=== PATIENT | female | born 1975 | race Caucasian/White ===

== ENCOUNTER 2024-10-14 18:49 | Emergency (ER) | payer OTHER, SELFPAY ==
--- OUTSIDE RECORDS SUMMARY | 2023-06-20 06:36 | XMS_ITS | Continuity of Care Document ---
Author Organization [facility] Address [address] [address] [place] [address] Phone Care Team Providers Care Lion Trainer Name Role Phone Steffen Barkley MD, [facility] Advance Directives Directive Yes / No Effective Date File Name No Information Encounters Encounter Description Practice Location Reason(s) For Visit Diagnoses Date Provider Providers Copied on Encounter [facility], [address] [address], [place], [place], [id number], [place] tel:[phone] [facility] No Information Steffen Pagan. [address] [facility], [facility] [address], [place], [place], [id number], [place]. tel:[phone] Family History Family Member Type Diagnosis Age At Onset No Information Immunizations Vaccine Date Status Comments Afluria Qd administered Note: [facility]IC bi-directional interface ; Source: Other Registry SARS-COV-2 (COVID-19) vaccin e, mRNA, spike protein, LNP, preservative free, 50 mcg/0.5 mL dose administered Note: [facility]IC bi-direct ional interface ; Source: Other Registry SARS-COV-2 (COVID-19) vaccin e, mRNA, spike protein, LNP, preservative free, 30 mcg/0.3mL dose administered Note: [facility]IC bi-direct ional interface ; Source: Other Registry SARS-COV-2 (COVID-19) vaccin e, mRNA, spike protein, LNP, preservative free, 30 mcg/0.3mL dose administered Note: MIIC bi-direct ional interface ; Source: Other Registry Influenza administered Note: [facility]IC bi-d irectional interface ; Source: Other Registry influenza virus vaccine, unspecified formulation administered Note: [facility]IC bi-di rectional interface ; Source: Other Registry Influenza, seasonal, injecta ble, preservative free administered Note: MIIC bi-direct ional interface ; Source: Other Registry influenza virus vaccine, unspecified formulation administered Note: MIIC bi-di rectional interface ; Source: Other Registry tetanus toxoid, reduced diphtheria toxoid, and acellular pertussis vaccine, adsorbed administered Note: Pal[employer]romXIC b i-directional interface ; Source: Other Registry Influenza, seasonal, injectable administe red Note: [facility]IC bi- directional interface ; Source: Other Registry Payers Payer name Insurance type Covered alliance party ID Authoriza tion(s) No Information Social History Type Description Quantity Date Captured Comments Sex Female Smoking Status No Information Chief Complaint And Reason For Visit No Information Reason For Referral Reason For Referral No Information History Of Present Illness Encounter Date Complaint History Of Prese nt Illness No Information Functional Status Date Functional Assessmen t No Information Instructions Date Instruction Additional Infor mation No Information Assessments Type Assessment Date No Information Patient Care Teams Name Effective Dates (start - stop) Status Members No Information
--- OUTSIDE RECORDS SUMMARY | 2023-06-20 06:36 | XMS_ITS | Continuity of Care Document ---
Author Organization [facility] Address [address] [address] [place] [address] Phone Care Team Providers Care Senior Oracle Adf Developer Name Role Phone Steffen Barkley MD, [facility] Advance Directives Directive Yes / No Effective Date File Name No Information Encounters Encounter Description Practice Location Reason(s) For Visit Diagnoses Date Provider Providers Copied on Encounter [facility], [address] [address], [place], [place], [id number], [place] tel:[phone] [facility] No Information Steffen Pagan. [address] [facility], [facility] [address], [place], [place], [id number], [place]. tel:[phone] Family History Family Member Type Diagnosis Age [...] and acellular pertussis vaccine, adsorbed administered Note: [facility] Data[facility] b i-directional interface ; Source: Other Registry Influenza, seasonal, injectable administe red Note: [facility]IC bi- directional interface ; Source: Other Registry Payers Payer name Insurance type Covered green party ID Authoriza tion(s) No Information Social [...]
[2024-10-14 18:52] VITALS: BP 135/88; PULSE 77; RESP 18; TEMP 36.9; O2SAT 94; BMI 20.6
--- OUTSIDE RECORDS SUMMARY | 2024-10-14 18:52 | XMS_ITS | Encounter Summary ---
Author Organization [place] Address [facility] [place] [address] Care Team Providers Care Workplace Relations Adviser Name Role Phone Unassigned MD ELIZABETH, Clinic Primary Care Provider Unavailable No Ref-Primary, Physician Primary Care Provider No Ref-Primary, Physician Primary Care Provider Clinic - [facility] Primary Care Provider Chromy Diana A PA-C Unavailable [phone] Chromy, Diana A PA-C Unavailable [phone] No Ref-Primary, Physician Primary Care Provider Encounter Details Date Type Department Care Team (Late st Contact Info) Description 11/11/2009 Clinic Report (Enforcement Manager) [address] [phone] No Funez MD NO INFO AVAILABLE 07/07/2022 Social History Tobacco Use Types Packs/Day Years Used Date Smoking Tobacco: Never Assessed Comments Unknown Sex and Gender Information Value Date Recorded Sex Assigned at Not on file 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 It is located on the buttocks right. The symptom is described as acute, firm, sharp pain and stable. The symptom is sudden in onset and ongoing. The symptom started 5 days ago. The complaint is severe. The frequency of episodes is daily. Important triggers include no known associated factors. The symptom is alleviated by warm compress and drainage. The symptom is exacerbated by direct pressure. ROS: Constitutional: The patient denied fatigue, fever, insomnia, night sweats, recent illness and weight loss. Dermatologic: The patient complained of cyst (3 cm on right buttocks not much improved though it drained alot yesterday.) but denied itching and rash. Vital Signs: data collected on 11/11/2009 03:40:52 PM by Zahraa Mars weight is 113 pounds clothed sitting heart rate is 64 bpm radial regular blood pressure at Left Arm while Sitting is 100/68 mmHg PE: Constitutional: GENERAL APPEARANCE: Overall: well nourished, well developed and in no acute distress. Integument: INSPECTION OF SKIN: Dermatitis: cyst; PALPATION: Abdomen inspection: tender and induration. Dx: (685.0) - C - Pilonidal cyst w/ abscess Rx: Cephalexin 500 mg Tab, 1 Tablet(s), PO, QID, 10 days, for a total of 40, start on November 11, 2009, end on November 20, 2009. Rocephin 1 gram Solution for Injection, 1 Gram(s), Inj, daily, for a total of 1 gm, start on November 11, 2009, end on November 10, 2009. Plan: None Patient Instructions: None documented in this encounter Plan of Treatment Not on file documented as of this encounter Visit Diagnoses Not on filedocumented in this encounter Additional Health Concerns Infection Onset Date Last Indicated Resolved Time Rule Out C-difficile 10/29/2022 10/29/2022 023 8:25 PM CDT documented as of this encounter Care Teams Workplace Relations Adviser Relationship Specialty Start Date End Date Unassigned, Clinic MD ELIZABETH PCP - General 08/14/10 1 No Ref-Primary, Physician PCP - General 01/08/11 10/12/12 No Ref-Primary, Physician PCP - General 10/13/12 12/19/16 Clinic - [facility] [address] [place], [place] [address] PCP - General 12/20/16 10/28/22 Diana Mcfarland PA-C [address] [place] [address] [facility] [address] PCP - Assigned PCP 12/07/15 06/27/18 No Ref-Primary, Physician PCP - General 10/29/22 Diana Mcfarland PA-C [address] [place] [address] [facility] [place] [address] Assigned PCP 12/07/15 12/02/18 documented as of this encounter
--- OUTSIDE RECORDS SUMMARY | 2024-10-14 18:52 | XMS_ITS | Encounter Summary ---
Author Organization [place] Address [facility] [place] [address] Care Team Providers Care Kelp Cutter Name Role Phone Unassigned MD ELIZABETH, Clinic Primary Care Provider Unavailable No Ref-Primary, Physician Primary Care Provider No Ref-Primary, Physician Primary Care Provider Clinic - [facility] Primary Care Provider Chromy Diana A PA-C Unavailable [phone] Chromy, Diana A PA-C Unavailable [phone] No Ref-Primary, Physician Primary Care Provider Encounter Details Date Type Department Care Team (Late st Contact Info) Description 11/10/2009 Clinic Report (Stained Glass Glazier) [address] [phone] No Funez MD NO INFO AVAILABLE 07/07/2022 Social History Tobacco Use Types Packs/Day Years Used Date Smoking Tobacco: Never Assessed Comments Unknown Sex and Gender Information Value Date Recorded Sex Assigned at Not on file 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 She presented with cyst. It is located on the buttocks Tailbone. The symptom is described as sharp pain and worsening. The symptom is gradual in onset. The symptom started 4 days ago. The complaint is severe. The frequency of episodes is daily. ROS: None Vital Signs: data collected on 11/10/2009 08:38:24 AM by Zahraaabel Mayslisa weight is 113 pounds clothed sitting heart rate is 64 bpm radial regular blood pressure at Left Arm while Sitting is 116/68 mmHg PE: Constitutional: GENERAL APPEARANCE: Overall: well nourished, well developed and in no acute distress. Integument: INSPECTION OF SKIN: Dermatitis: cyst. Dx: (706.2) - C - Sebaceous cyst (685.0) - C - Pilonidal cyst w/ abscess Rx: Rocephin 1 gram Solution for Injection, 1 Gram(s), Inj, daily, 1 days, for a total of 1 gm, start on November 10, 2009, end on November 10, 2009. Plan: A return visit is indicated in 1day. Patient Instructions: Soak all day and return tomorrow to get drain removed and to reassess it. documented in this encounter Plan of Treatment Not on file documented as of this encounter Visit Diagnoses Not on filedocumented in this encounter Additional Health Concerns Infection Onset Date Last Indicated Resolved Time Rule Out C-difficile 10/29/2022 10/29/2022 023 8:25 PM CDT documented as of this encounter Care Teams Kelp Cutter Relationship Specialty Start Date End Date Unassigned, Clinic MD ELIZABETH PCP - General 08/14/10 1 No Ref-Primary, Physician PCP - General 01/08/11 10/12/12 No Ref-Primary, Physician PCP - General 10/13/12 12/19/16 Clinic - [facility] [address] [place] [id number] PCP - General 12/20/16 10/28/22 Diana Mcfarland PA-C [address] [place] [address] [facility] [place] [address] PCP - Assigned PCP 12/07/15 06/27/18 No Ref-Primary, Physician PCP - General 10/29/22 Diana Mcfarland PA-C [address] [place] [address] [facility] [place] [address] Assigned PCP 12/07/15 12/02/18 documented as of this encounter
--- OUTSIDE RECORDS SUMMARY | 2024-10-14 18:52 | XMS_ITS | Clinical Summary ---
Author Organization [place] Address [facility] [place] [address] Care Team Providers Care Compressed Gas Equipment Mechanic Name Role Phone No Ref-Primary, Physician Primary Care Provider Allergies No known active allergies Medications ondansetron (ZOFRAN ODT) 4 MG ODT tab Take 1 tablet (4 mg) by mouth every 6 hours as needed for nausea 10 tablet 10/29/2022 Active loperamide (IMODIUM A-D) 2 MG tablet Take 1 tablet (2 mg) by mouth 4 times daily as needed for diarrhea 20 tablet 10/29/2022 Active Active Problems Problem Noted Date Diagnosed Date CARDIOVASCULAR SCREENING; LDL GOAL LESS THAN 160 04/03/2015 GDM (gestational diabetes mellitus) in 2010 w Hg bA1C= 5.8 08/03/2012 Depression 11/05/2010 Overview (05/23/2013): Was seen 08/05 by [facility] and started on Topimax for mood disorder as she had not tolerated any other antidepressants in the past. Stopped taking this as she was feeling better 04/06. Has a hx of eating disorder - ongoing binging and purging - and has gained about 40# since that time. Would like to try an SSRI again and is willing to accept the risks that she may deal with the same side effects. Will return to clinic 06/08 for follow up. Resolved Problems Problem Noted Date Diagnosed Date Resolved Date Carrier of group B Streptococcus 12/29/2010 04/03/2015 IUGR (intrauterine growth re striction) Asymmetrical 12/22/2010 02/17/2011 Supervision of high-risk pre gnancy of elderly primigravida 12/16/2010 02/17/2011 Overview (12/16/2010): Late and sporadic care, Wt loss. Risked out of [facility] care/transferred to [facility] GDM (gestational diabetes mellitus) 11/05/2010 08/03/2012 Abnormal maternal glucose to [facility], complicating , childbirth, or the puer[place]ium, unspecified as to episode of care 10/22/2010 11/05/2010 Overview (11/02/2010): Failed GCT Has GTT scheduled. Need for Tdap vaccination post 08/14/2010 05/23/2013 Encounter for supervision of other normal 08/14/2010 12/16/2010 Overview (02/24/2015): ABO was cancelled so needs redraw at next visit. Jkd Small stomach on MFM scan so will repeat in 4 weeks. Jkd Follow up normal Diagnosis updated by automated process. Provider to review and confirm. Immunizations Immunization Administration Dates Next Due Nasal Influenza Vaccine 2-49 (FluMist) 5 TDAP (Adacel,Boostrix) 09/30/2011 Family History Medical History Relation Comments Alcohol/Drug Maternal Grandfather Breast Cancer Maternal Grandmother 70's Neurologic Disorder Mother migraines Alcohol/Drug Paternal Grandfather Relation Status Comments Father Alive Maternal Grandfather Maternal Grandmother Alive Mother Alive Paternal Grandfather Paternal Grandmother Sister 1 Alive Sister 2 Alive Social History Tobacco Use Types Packs/Day Years Used Date Smoking Tobacco: Never Smokeless Tobacco: Never Tobacco Cessation:Counseling Given: No Alcohol Use Standard Drinks/Week Comments No 0 (1 standard drink = 0.6 oz pur e alcohol) not with Adolescent Education Answer Date Record ed Getting School Help Needed Not on file 02/07 Comments No Sex and Gender Information Value Date Recorded Sex Assigned at Not on file Legal 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 Gender Identity Not on file Sexual Orientation Not on file Last Filed Vital Signs Vital Sign Reading Time Taken Comments Blood Pressure 136/85 10/29/2022 2:28 PM CDT Pulse 80 10/29/2022 2:11 PM CDT Temperature 36.9 C (98.4 F) 10/29/2022 2:11 PM CDT Respiratory Rate 16 10/29/2022 2:11 PM CDT Oxygen Saturation 97% 10/29/2022 2:11 PM CDT Inhaled Oxygen Concentration - - Weight 58.7 kg (129 lb 6.4 oz) 12/03/2015 7:16 A M CDT Height 162.6 cm (5' 4) 12/03/2015 7:16 AM CDT Body Mass Index 22.21 12/03/2015 7:16 AM CDT Plan of Treatment Health Maintenance Due Date Last Done Comments ADVANCE CARE PLANNING 1975 ANNUAL REVIEW OF HM ORDERS 1975 CT COLONOGRAPHY 1975 FIT 1975 FLEX SIG 1975 MAMMO SCREENING 1975 sDNA (Cologuard) 1975 YEARLY PREVENTIVE VISIT 11/25/1978 COLONOSCOPY 11/25/1985 COLORECTAL CANCER SCREENING 11/25/1985 HEPATITIS C SCREENING 11/25/1993 HEPATITIS B VACCINE (1 of 3 - 19+ 3-dose series) 11/25/1994 PAP 08/14/2013 08/14/2010 LIPID 2015 DTAP/TDAP/TD VACCINE (3 - Td or Tdap) 09/05/2023 09/04/2013, 09/30/2011 COVID-19 VACCINE ( - season) 2023 09/21/2020, 09/01/2020 PHQ-2 (once per calendar year) 2024 04/21/2015, 04/21/2015, 04/03/2015, Additional history exists INFLUENZA VACCINE (Season Ended) 2024 02/28/2017, 12/26/2014, 12/09/2014, Additional history exists DIABETES SCREENING 10/29/2025 10/29/2022, 0 01/08/2011, 01/08/2011, Additional history exists ZOSTER VACCINE (1 of 2) 11/25/2025 HIV SCREENING Completed 08/14/2010 HPV VACCINE Aged Out No longer eligi ble based on patient's age to complete this topic MENINGITIS VACCINE Aged Out No longer eligible based on patient's age to complete this topic PNEUMOCOCCAL VACCINE: PEDIATRICS (0 to 5 YEARS) AND AT-RISK PATIENTS (6 to 49 YEARS) Aged Out No longer eligible based on patient's age to complete this topic Procedures Procedure Name Priority Date/Time Associated Diagnosis Comments COMPREHENSIVE METABOLIC PANEL STAT 10/29/2022 2:19 PM CDT HIV 1 AND 2 ANTIBODY (QUEST) Routine 08/14/2010 4:09 PM CDT PAP IMAGED THIN LAYER SCREEN Routine 08/14/2010 12:00 AM CDT Supervision of other normal from Last 3 Months or Most Recently Relevant to Health Maintenance Results * (ABNORMAL) Comprehensive metabolic panel (10/29/2022 2:19 PM CDT) Sodium 138 136 - 145 mmol/L 10/29/2022 3:29 PM CDT LABORATORY Potassium 4.2 3.4 - 5.3 mmol/L 10/29/2022 3:29 PM CDT LABORATORY Chloride 100 98 - 107 mmol/L 10/29/2022 3:29 PM CDT LABORATORY Carbon Dioxide (CO2) 27 22 - 29 mmol/L 10/29/2022 3:29 PM CDT LABORATORY Anion Gap 11 7 - 15 mmol/L 10/29/2022 3:29 PM CDT LABORATORY Urea Nitrogen 6.1 6.0 - 20.0 mg/dL 10/29/2022 3:29 PM CDT LABORATORY Creatinine 0.74 0.51 - 0.95 mg/dL 10/29/2022 3:29 PM CDT LABORATORY Calcium 9.0 8.6 - 10.0 mg/dL 10/29/2022 3:29 PM CDT LABORATORY Glucose 117(H) 70 - 99 mg/dL 10/29/2022 3:29 PM CDT LABORATORY Alkaline Phosphatase 66 35 - 104 U/L 10/29/2022 3:29 PM CDT LABORATORY AST 41 0 - 45 U/L 10/29/2022 3:29 PM CDT LABORATORY Comment:Reference intervals for this test were updated on 10/04/2022 to more accurately reflect our healthy population. There may be differences in the flagging of prior results with similar values performed with this method. Interpretation of those prior results can be made in the context of the updated reference intervals. ALT 21 0 - 50 U/L 10/29/2022 3:29 PM CDT LABORATORY Comment:Reference intervals for this test were updated on 10/04/2022 to more accurately reflect our healthy population. There may be differences in the flagging of prior results with similar values performed with this method. Interpretation of those prior results can be made in the context of the updated reference intervals. Protein Total 6.5 6.4 - 8.3 g/dL 10/29/2022 3:29 PM CDT LABORATORY Albumin 3.8 3.5 - 5.2 g/dL 10/29/2022 3:29 PM CDT LABORATORY Bilirubin Total 1.4(H) <=1.2 mg/dL 10/29/2022 3:29 PM CDT LABORATORY GFR Estimate >90 >60 mL/min/1. 73m2 10/29/2022 3:29 PM CDT LABORATORY Blood BLOOD SPECIMEN / Unknown Venipuncture / Unknown 10/29/2022 2:19 PM CDT 10/29/2022 3:10 PM CDT us Emeli Conrad MD LAB - BLOOD ORDERABLES Radha l Result LABORATORY [facility] [address] 1[address] floor, [address] [place] [address], [facility] [phone] * HIV 1 and 2 Antibody (08/14/2010 4:09 PM CDT) HIV 1&2 Antibody Negative NEG [facility] Blood specimen (specimen) 08/14/2010 4:09 PM CDT 08/14/2010 4:10 PM CDT us Queta Bartlett APRN CNM LAB - BLOOD ORDERABLES Final Result [facility] [address] [place] [address] * PAP imaged thin layer screen (08/14/2010 12:00 AM CDT) PAP CALEB Aguilar Report Patient Name: BRENDA QUIROGA MR#: [id number] Specimen #: [id number] Collected: 08/14/2010 Received: 08/17/2010 Reported: 08/20/2010 15:55 Ordering Phy(s): QUETA BARTLETT SPECIMEN/STAIN PROCESS: Pap imaged thin layer prep screening (Surepath, FocalPoint with guided screening) Pap-Cyto x 1, Reflex HPV x 1 SOURCE: Cervical, endocervical Pap imaged thin layer prep screening (Surepath, FocalPoint with guided screening) SPECIMEN ADEQUACY: Satisfactory for evaluation. -Transformation zone component absent. CYTOLOGIC INTERPRETATION: Negative for Intraepithelial Lesion or Malignancy Other Non-Neoplastic Findings: Reactive cellular changes associated with: -Parakeratosis. Organism(s): -Shift in sita suggestive of bacterial vaginosis. Electronically signed out by: Hubert Ramirez M.D. Processed and screened at [facility] CLINICAL HISTORY: LMP: 04/13/2010 , Papanicolaou Test Limitations: Cervical cytology is a screening test with limited sensitivity; regular screening is critical for cancer prevention; Pap tests are primarily effective for the diagnosis/preventi on of squamous cell carcinoma, not adenocarcinomas or other cancers. TESTING LAB LOCATION: [facility], [address] [place] [id number] COLLECTION SITE: Client: [facility] Location: [facility] (B) [facility] Cytologic material (specimen) 08/14/2010 08/17/2010 12:47 PM CDT us Queta Bartlett WATCHGUARD CNM LAB - OPTIME CLINICAL SPECIMEN Final Result COPATH from Last 3 Months or Most Recently Relevant to Health Maintenance Insurance [facility] Care Teams Compressed Gas Equipment Mechanic Relationship Specialty Start Date End Date No Ref-Primary, Physician PCP - General 10/29/22
--- OUTSIDE RECORDS SUMMARY | 2024-10-14 18:52 | XMS_ITS | Encounter Summary ---
Author Organization [facility] Address [address] [place] [address] Care Team Providers Care Bottom Sander Name Role Phone No Ref-Primary, Physician Primary Care Provider No Ref-Primary, Physician Primary Care Provider Clinic - [facility] Primary Care Provider Diana Mcfarland PA-C Unavailable [phone] Diana Mcfarland PA-C Unavailable [phone] No Ref-Primary, Physician Primary Care Provider Encounter Details Date Type Department Care Team (Late st Contact Info) Description 09/30/2011 Clinic Report (Campus Coordinator) [address] [phone] Luanne Awad DO [address] [place] [address] [address] [place], [place] [id number] Social History Tobacco Use Types Packs/Day Years Used Date Smoking Tobacco: Never Smokeless Tobacco: Never Alcohol Use Standard Drinks/Week Comments No 0 (1 standard drink = 0.6 oz pur e alcohol) not with Comments No Sex and Gender Information Value Date Recorded Sex Assigned at Not on file Legal Sex Female 3:54 AM SOCIAL SERVICES COORDINATOR Gender Identity Not on file Sexual Orientation Not on file documented as of this encounter Progress Notes * Luanne Awad DO - 03/17/2012 6:31 PM CST CC/HPI: She presented with cough. It is located in the lung. The symptom is described as acute. The symptom is ongoing. The symptom started 3 weeks ago. The complaint moderately limits activities. The frequency of episodes is daily. ROS: no whooping. however, pt's mother with whooping cough about a month ago and questionable contact with pt. Constitutional: The patient complained of chills (yesterday) and fever (yesterday, didn't check temp but warm at home yesterday). Ears/Nose/Throat/Neck: The patient complained of postnasal drip and sinus congestion but denied nosebleed. Respiratory: The patient complained of cough but denied asthma, cigarette smoking and dyspnea/shortness of breath. Gastrointestinal: The patient complained of anorexia (past only.). Genitourinary/Nephrology: The patient denied (not bf). Allergy/Immunology: The patient denied food allergy. Vital Signs: data collected on 09/30/2011 11:55:55 AM by Kendra Tillman weight is 117 pounds clothed temperature is 100.3 F sitting heart rate is 88 bpm regular blood pressure at Left Arm while Sitting is 114/62 mmHg PE: Constitutional: GENERAL APPEARANCE: Overall: well nourished, well developed and in no acute distress. Eyes: CONJUNCTIVA/EYELIDS: Overall: conjunctiva clear. Ears/Nose/Throat: OTOSCOPIC EXAM: Overall: tympanic membranes clear; INTERNAL NOSE: Drainage: white; Sinus tenderness: left maxillary and right maxillary; ORAL CAVITY/PHARYNX/LARYNX: Overall: oropharyngeal mucosa clear. Neck: INSPECTION OF NECK: Overall: normal size. Respiratory: AUSCULTATION: Overall: breath sounds clear bilaterally. Cardiovascular: AUSCULTATION OF HEART: Overall: regular rate, regular rhythm, normal heart sounds and no murmurs. Abdomen: ABDOMINAL EXAM: Overall: no tenderness and normal bowel sounds. Lymphatic: NECK NODES: Overall: anterior cervical chain benign and posterior cervical chain benign. Dx: (786.2) - C - Cough (465.9) - C - Upper respiratory infection, acute, NOS (461.9) - C - Sinusitis, acute, NOS (472.0) - C - Rhinitis (V06.1) - C - DTAP/Tdap vaccination Rx: Flonase 50 mcg/Actuation Nasal Weidman, 1-2 Weidman, NASAL, QHS PRN, 30 days, for a total of 1, start on September 30, 2011, end on October 29, 2011. Zithromax Z-Kael 250 mg Tab, PO, 5 days, for a total of 6, start on September 30, 2011, end on October 04, 2011, 2 tablets po day 1 then 1 tablet po each day, days 2-5.. Plan: note off today, tomorrow, return sat. pt requests zpak. pt aware of potential cardiac side effects and accepts risks. denies dm/heart disease. trial of flonase for a few weeks. pt mentions child at home with mild cold and follows with other dr and advised that she followup with her melita dr soon and melita shots up to date per mom and no direct contact with whooping cough. pt would like Tdap today and realizes will not prevent disease from previous exposure but will help in future. Symptomatic measures. Advised recheck doctor appt in next 24- 48 hours if significant improvement not noted by that time, followup earlier as needed. I advised that patient have a recheck doctor appointment in the next 2 weeks if complete resolution not noted by that time. I advised patient to see a doctor right away with any acute changes. I reviewed the risks, benefits, and alternatives of plan, and the patient understands, agrees, and wishes to proceed. She was given this form: 'Patient Medication Summary'. Patient Instructions: None documented in this encounter Plan of Treatment Not on file documented as of this encounter Visit Diagnoses Not on filedocumented in this encounter Additional Health Concerns Infection Onset Date Last Indicated Resolved Time Rule Out C-difficile 10/29/2022 10/29/2022 023 8:25 PM CDT documented as of this encounter Care Teams Bottom Sander Relationship Specialty Start Date End Date No Ref-Primary, Physician PCP - General 01/08/11 10/12/12 No Ref-Primary, Physician PCP - General 10/13/12 12/19/16 [facility] [address] [facility] [place] [address] PCP - General 12/20/16 10/28/22 Diana Mcfarland PA-C [address] [place] [address] [place] [address] PCP - Assigned PCP 12/07/15 06/27/18 No Ref-Primary, Physician PCP - General 10/29/22 Diana Mcfarland PA-C [address] [place] [address] [place] [address] Assigned PCP 12/07/15 12/02/18 documented as of this encounter
--- OUTSIDE RECORDS SUMMARY | 2024-10-14 18:52 | XMS_ITS | Encounter Summary ---
Author Organization [facility] Address [facility] [place] [address] Care Team Providers Care Making Machine Operator Name Role Phone Unassigned MD ELIZABETH, Clinic Primary Care Provider Unavailable No Ref-Primary, Physician Primary Care Provider No Ref-Primary, Physician Primary Care Provider Clinic - [facility] Primary Care Provider ChromDiana shelton A PA-C Unavailable [phone] Chromy Diana A PA-C Unavailable [phone] No Ref-Primary, Physician Primary Care Provider Encounter Details Date Type Department Care Team (Late st Contact Info) Description 05/31/2009 Clinic Report (Corn Crop Supervisor) [address] [phone] Kathy Betts MD Social History Tobacco Use Types Packs/Day Years Used Date Smoking Tobacco: Never Assessed Comments Unknown Sex and Gender Information Value Date Recorded Sex Assigned at Not on file Legal Sex Female 3:54 AM SUPERVISOR ANODIZING Gender Identity Not on file Sexual Orientation Not on file documented as of this encounter Progress Notes * Kathy Betts MD - 03/18/2012 5:23 AM CST CC/HPI: Pt. needs antidepressants in winter. Can you prescribe one? Ins doesn't cover. Do we have samples? Std check. In addition, she presented with vaginal discharge. The symptom is described as acute, foul-smelling, worsening and yellow. The symptom is gradual in onset. The symptom started 2 weeks ago. Current Medication: Lamictal Oral, Oral, end on November 09, 2009, discontinued because: Discontinued and Pt not taking. ROS: Constitutional: The patient complained of weight loss but denied fatigue, fever, insomnia, night sweats and recent illness. Cardiovascular: The patient denied arrhythmia, chest pain/pressure, edema, exercise intolerance, orthopnea and palpitations. Respiratory: The patient denied asthma, cough, dyspnea/shortness of breath, pleuritic pain, productive sputum and wheezing. Genitourinary/Nephrology: The patient complained of vaginal discharge but denied dysuria, hematuria, nocturia, urinary frequency, urinary incontinence and urinary urgency. Neurologic: The patient denied dizziness, headache, memory loss, mental status change and syncope. Psychiatric: The patient complained of depression and eating disorder but denied anxiety, insomnia, mood swings and suicidality. Vital Signs: data collected on 05/31/2009 10:05:43 AM by Elen Schultz weight is 112 pounds clothed sitting heart rate is 98 bpm regular blood pressure at Right Arm while Sitting is 100/76 mmHg PE: Constitutional: GENERAL APPEARANCE: Overall: well nourished, well developed and in no acute distress; Nourishment: thin. Eyes: CONJUNCTIVA/EYELIDS: Overall: conjunctiva clear, cornea clear and eyelids normal. Neck: INSPECTION OF NECK: Overall: normal appearance and no carotid bruits. Respiratory: RESPIRATORY EFFORT/RHYTHM: Overall: no retractions and normal rate. Abdomen: ABDOMINAL EXAM: Overall: no tenderness and normal bowel sounds. Genitourinary: UTERUS: Overall: normal size, normal contour, normal shape, normal mobility, nontender and no mass; CERVIX: Overall: no cervical motion tenderness, no discharge and no lesions; LABIA AND VAGINA: Overall: normal hair distribution, no discharge and no lesions; ADNEXA/PARAMETRIA: Overall: no tenderness, no enlargement, no mass lesions and normal size; URETHRA: Overall: no masses; BLADDER: Overall: no tenderness. Neurologic: MENTAL STATUS: Overall: alert and oriented; GAIT: Overall: no ataxia, no unsteadiness. Psychiatric: ORIENTATION/CONSCIOUSNESS: Overall: oriented to person, place and time; BEHAVIOR/PSYCHOMOTOR ACTIVITY: Overall: no tics, normal psychomotor activity; MOOD AND AFFECT: Overall: normal mood and affect; APPEARANCE: Overall: well-groomed, good eye contact; SPEECH: Overall: normal quality, no aphasia and normal quality, quantity, rate; ATTENTION: Overall: normal digit recall and number repeating; THOUGHT: Overall: normal form and content; COGNITION/MEMORY: Overall: immediate, recent, remote memory intact and normal concentration, intelligence; JUDGMENT/INSIGHT: Overall: judgment and insight intact. Dx: (311) - C - Depression Disorder, not elsewhere specified (seasonal) (616.10) - C - Bacterial vaginitis (hemophilus) (V74.5) - C - Screening, STD Rx: Citalopram 20 mg Tab, 1 Tablet(s), PO, daily, 30 days, for a total of 30, start on May 31, 2009, end on June 29, 2009, needs to rtc for more. Metronidazole 0.75 % Vaginal Gel, 1 Application, VAG, QHS, 7 days, start on May 31, 2009, end on June 06, 2009. Metronidazole 500 mg Tab, 1 Tablet(s), PO, BID, 14 days, for a total of 28, start on May 31, 2009, end on June 13, 2009. Plan: A return visit is indicated in 1week. Patient Instructions: f/u start citalopram Discussed : may need ongoing contiuous SSRI Rx RVISOR ANODIZING documented in this encounter Plan of Treatment Not on file documented as of this encounter Visit Diagnoses Not on filedocumented in this encounter Additional Health Concerns Infection Onset Date Last Indicated Resolved Time Rule Out C-difficile 10/29/2022 10/29/2022 023 8:25 PM CDT documented as of this encounter Care Teams Making Machine Operator Relationship Specialty Start Date End Date Unassigned, Clinic MD ELIZABETH PCP - General 08/14/10 1 No Ref-Primary, Physician PCP - General 01/08/11 10/12/12 No Ref-Primary, Physician PCP - General 10/13/12 12/19/16 Clinic - [facility] [address] [place], [place] [address] [address] PCP - General 12/20/16 10/28/22 Diana Mcfarland PA-C [address] [place] [address] [place] [address] PCP - Assigned PCP 12/07/15 06/27/18 No Ref-Primary, Physician PCP - General 10/29/22 Diana Mcfarland PA-C [address] [place] [address] [place] [address] Assigned PCP 12/07/15 12/02/18 documented as of this encounter
--- OUTSIDE RECORDS SUMMARY | 2024-10-14 18:52 | XMS_ITS | Clinical Summary ---
Author Organization [facility] Address [address] [place] [address] Care Team Providers Care Cafeteria Clerk Name Role Phone Jero Soniclaudia Alvarez NP Primary Care Provider Allergies No known active allergies Medications hydrOXYzine HCL (ATARAX) 25 mg tabletIndicatio ns:FLORINDA (generalized anxiety disorder) Take 25-50 mg twice daily as needed for anxiety. 90 Tablet 06/23/19 24 Active thiamine (VITAMIN B1) 100 mg tabletIndicatio ns:Alcohol abuse Take 1 Tablet (100 mg) by mouth once daily. 30 Tablet 06/23/19 24 Active venlafaxine (Effexor XR) 37.5 mg Extended-Releas e capsuleIndicati ons:Severe episode of recurrent major depressive disorder, without psychotic features (HC) Start 37.5 mg once daily for one week, then increase to Effexor 75 mg daily. 7 Capsule 07/22/19 24 Active venlafaxine (Effexor XR) 75 mg cp24 Extended-Releas e capsuleIndicati ons:Severe episode of recurrent major depressive disorder, without psychotic features (HC) Take 37.5 mg once daily for one week, then 75 mg once daily thereafter. 30 Capsule 2 07/22/19 24 Active QUEtiapine (SeroqueL) 25 mg tabletIndicatio ns:Insomnia, unspecified type Take 1-2 Tablets (25-50 mg) by mouth at bedtime if needed for Hallucinations (sleep). 30 Tablet 2 07/22/19 24 Active folic acid 800 mcg tabletIndicatio ns:Alcohol abuse Take 1 Tablet (800 mcg) by mouth once daily. 30 Tablet 09/23/19 24 Active FLUoxetine (PROzac) 20 mg capsuleIndicati ons:Obsessive-c ompulsive disorder, unspecified type Take 1 Capsule (20 mg) by mouth once daily in the morning. 30 Capsule 09/22/19 25 Active traZODone 50 mg tabletIndicatio ns:Insomnia, idiopathic 1-3 PO at bedtime PRN 30 Tablet 1 09/22/19 25 Active FLUoxetine (PROZAC) 20 mg capsuleIndicati ons:Severe episode of recurrent major depressive disorder, without psychotic features (HC),FLORINDA (generalized anxiety disorder) Take 40 mg daily for one week, then 20 mg daily for one week, then stop. 21 Capsule 07/22/19 24 025 Discontin ued(*Medi cation adjustmen t) Active Problems Problem Noted Date Diagnosed Date Bulimia nervosa 04/28/2023 Suicidal ideation 12/05/2013 Alcohol intoxication 12/05/2013 Tylenol overdose 12/05/2013 Eating disorder 11/02/2010 Depression with anxiety 11/02/2010 Encounters Date Type Department Care Team Description 10/08/2024 Refill [facility] - [facility] at [address] [place] [phone] Brittaney Zelaya, LABORATORY SAMPLER Refill Request (Fluoxetine 40mg/) 09/21/2024 2:15 PM CDT Office Visit [facility] [address] [place] [phone] Lopez Denny MD Mental Health Issue 09/21/2024 Travel from Last 3 Months Immunizations Immunization Administration Dates Next Due AMB Influenza, IIV3 (Age 6-35 mos) (Flu Clinic O nly) 04/20/2012 COVID-19 VACCINE SPIKEVAX (M ODERNA 50MCG/0.5ML) 12YO+ PFS 04/28/2023 Influenza Virus, Unspecified 12/26/2014,02/14/20 14 Influenza, IIV3 (Age 6-35 mos) 12/09/2014 Influenza, IIV4 04/28/2023,02/16/2014 Influenza, IIV4 (=>6mos) MDV 02/28/2017 Influenza,LAIV4 Live Intranasal (Flumist) 2014 Tdap 09/04/2013 Tdap, Unspecified 09/30/2011 Family History Medical History Relation Name Comments Good Health Father Good Health Mother Good Health Sister 3 Relation Name Status Comments Father Alive Mother Alive Sister 1 Alive Sister 2 Alive Sister 3 Social History Tobacco Use Types Packs/Day Years Used Date Smoking Tobacco: Never Smokeless Tobacco: Never Tobacco Cessation:Counseling Given: Yes Alcohol Use Standard Drinks/Week Comments Yes 3 (1 standard drink = 0.6 oz pur e alcohol) occasional PHQ-2 Answer Date Recorded PHQ-2 TOTAL SCORE 6 07/22/2023 Social Connections Answer Date Recorded Do you often feel lonely or isolated from those around you? 4 09/21/2024 Financial Resource Strain Answer Date R ecorded Difficulty of Paying Living Expenses 1 09/21/2024 Difficulty of Paying Living Expenses 2 09/21/2024 Food Insecurity Answer Date Recorded Do you worry your food will run out before you are able to buy more? 1 09/21/2024 Transportation Needs Answer Date Record ed Does lack of transportation keep you from medica l appointments? 1 09/21/2024 Does lack of transportation keep you from work, meetings or getting things that you need? 1 09/21/2024 Housing Stability Answer Date Recorded What is your housing situation today? 1 09/21/2024 Utilities Answer Date Recorded Do you have trouble paying f or utilities (for example, heat, electricity, water, phone)? 1 09/21/2024 Comments No Sex and Gender Information Value Date Recorded Sex Assigned at Not on file Legal Sex Female 5:24 AM COLLECTION TELLER Gender Identity Not on file Sexual Orientation Not on file Occupation Industry Job Start Date Job End Date Not on file Not on file Not on file Not on file Not on file Not on file Not on file Not on file Not on file Not on file Not on file Not on file Obstetrics History Para Term AB IAB SAB Ectopic Multiple Livin g Live Births 1 Date Outcome GA Total Labor Labor/2nd/3rd Weight Sex Type Anes PTL [place] A1 A5 Name Clin Comments:System Genera shilpi. Please review and update details. Last Filed Vital Signs Vital Sign Reading Time Taken Comments Blood Pressure 114/82 06/29/2023 2:05 PM COLLECTION TELLER Pulse 64 06/29/2023 2:05 PM COLLECTION TELLER Temperature 36.6 C (97.9 F) 04/14/2023 3:22 PM COLLECTION TELLER Respiratory Rate 16 06/29/2023 2:05 PM COLLECTION TELLER Oxygen Saturation 95% 04/28/2023 8:45 AM COLLECTION TELLER Inhaled Oxygen Concentration - - Weight 56.4 kg (124 lb 6.4 oz) 06/29/2023 2:05 P M COLLECTION TELLER Height 165.1 cm (5' 5) 04/28/2023 8:45 AM COLLECTION TELLER Body Mass Index 20.7 04/28/2023 8:45 AM COLLECTION TELLER Plan of Treatment Health Maintenance Due Date Last Done Comments HIV for age 15-65 11/25/1990 Hepatitis C screening for age 18-79 11/25/1993 Hepatitis B series for 19+ (1 of 3 - 19+ 3-dose series) 11/25/1994 Colonoscopy through age 75 11/25/2020 Mammogram for age 45-75 11/25/2020 Tetanus booster 09/05/2023 09/04/2013, 09/30/2011 COVID-19 vaccine series ( season) 2023 04/28/2023, 09/21/2020, 09/01/2020 BMI (ht and wt on same day) for age 18+ 04/28/2024 04/28/2023, 03/25/2017 Depression screening for age 12+ 07/21/2024 07/22/2023, 06/24/2023, 06/23/2023, Additional history exists Pap test for age 21-65 07/24/2024 07/24/2021, 2021 Influenza Vaccine (Season Ended) 2024 04/28/2023, 02/28/2017, 12/26/2014, Additional history exists Lipids for age 45-75 04/28/2028 04/28/2023 Tdap Completed 09/04/2013, 09/30/2011 Pneumococcal series for age 6-49 Aged Out No longer eligible based on patient's age to complete this topic Procedures Procedure Name Priority Date/Time Associated Diagnosis Comments LIPID PANEL W REFLEX MEASURED LDL Routine 04/28/2023 9:48 AM COLLECTION TELLER Screening for lipid disorders HPV HIGH RISK Routine 07/24/2021 1:00 PM CDT from Last 3 Months or Most Recently Relevant to Health Maintenance Results * (ABNORMAL) LIPID PANEL W REFLEX MEASURED LDL [[id number]] (04/28/2023 9:48 AM COLLECTION TELLER) CHOLESTEROL,TOTAL 223(H) 100 - 199 mg/dL 04/28/2023 12:47 PM COLLECTION TELLER [facility] Comment: Cholesterol, Total Reference Ranges Desirable <200 mg/dL Borderline 200-239 mg/dL High >=240 mg/dL TRIGLYCERIDES 164(H) <150 mg/dL 04/28/2023 12:47 PM COLLECTION TELLER [facility] HDL CHOLESTEROL 87 >40 mg/dL 12:47 PM COLLECTION TELLER [facility] NON-HDL CHOLESTEROL 136 <145 mg/dl 04/28/2023 12:47 PM COLLECTION TELLER [facility] CHOL/HDL RATIO 2.56 <4.50 04/28/2023 12:47 PM COLLECTION TELLER [facility] LDL CHOLESTEROL 103 <=130 mg/dL 04/28/2023 12:47 PM COLLECTION TELLER [facility] VLDL CHOLESTEROL 33(H) <=30 mg/dL 04/28/2023 12:47 PM COLLECTION TELLER [facility] PROVIDER ORDERED STATUS RANDOM 04/28/2023 12:47 PM COLLECTION TELLER [facility] Blood BLOOD SPECIMEN / Unknown Venipuncture / Unknown 04/28/2023 9:48 AM COLLECTION TELLER 04/28/2023 9:48 AM COLLECTION TELLER us Haleigh Soni NP CHEMISTRY Final R esult [facility] [address] [place], [place] [address] * HPV HIGH RISK (07/24/2021 1:00 PM CDT) TYPE 16 Negative Negative 07/28/2021 5:30 PM CDT [facility] TYPE 18 Negative Negative 07/28/2021 5:30 PM CDT [facility] OTHER HIGH RISK TYPES Negative Negative 07/28/2021 5:30 PM CDT [facility] Other (Cervical/Vagina l) 07/24/2021 1:00 PM CDT 07/27/2021 9:05 AM CDT Narrative [facility] - 07/28/2021 5:30 PM CDT HPV types 16, 18, 31, 33, 35, 39, 45, 51, 52, 56, 58, 59, 66 and 68 DNA were undetectable or below the pre-set threshold. Methodology: Carol Aguila 4800 HPV Test us Christiana Mendez NP MICROBIOLOGY Final Resu lt [facility] [address] [place] [address], from Last 3 Months or Most Recently Relevant to Health Maintenance Insurance [facility] Advance Directives * Full Code (Latest Code Status on File) Date Activated Date Inactivated Comments 12/05/2013 3:11 AM 12/06/2013 8:13 PM Care Teams Cafeteria Clerk Relationship Specialty Start Date End Date Haleigh Soni NP [address] [place] [address] [place] [address] PCP - General Nurse Practitioner - Family 08/17/23
--- OUTSIDE RECORDS SUMMARY | 2024-10-14 18:52 | XMS_ITS | Clinical Summary ---
Author Organization [facility] Address [address] [place] [address] Care Team Providers Care Regulatory Submissions Associate Name Role Phone Kendra Hussein MD Primary Care Pr ovider Source Comments You are receiving this document as you are listed as the primary care provider,follow-up provider, or the patient has been referred to you for consultation.This is in compliance with the Medicare and[facility] EHR Incentive Program,which states Providers who transition their patient to another setting of careor provider of care or refers their patient to another provider of care shouldprovide summary care record for each transition of care or referral. [facility] Allerg[facility] No known active allergies Medications * This document contains information received from the source organization and may not represent a complete record from that organization. naltrexone (REVIA) 50 MG tablet Take 1 tablet by mouth daily (every 24 hours). 90 tablet 3 02/24/2015 Active Active Problems Problem Noted Date Diagnosed Date Bulimia nervosa 01/11/2014 Major depressive disorder, recurrent episode Overview (12/15/2016): Major depressive disorder, recurrent episode, unspecified (HRC) FLORINDA (generalized anxiety disorder) 01/11/2014 Alcohol abuse 01/11/2014 Overview (12/15/2016): Alcohol abuse, unspecified Resolved Problems Problem Noted Date Diagnosed Date Resolved Date Nonspecific abnormal electro cardiogram (ECG) (EKG) 02/20/2014 02/11/2015 Overview (12/15/2016): Nonspecific abnormal electrocardiogram (ECG) (EKG) - anterior Q waves, could be lead placement Bradycardia 01/11/2014 02/21/2014 Hypochloremic alkalosis 01/11/201401/25 Immunizations Immunization Administration Dates Next Due Influenza IIV4 (Quadrivalent) 0.5mL (07486) 01/24 Social History Tobacco Use Types Packs/Day Years Used Date Smoking Tobacco: Never Smokeless Tobacco: Never Alcohol Use Standard Drinks/Week Comments No 0 (1 standard drink = 0.6 oz pure alcohol) previous abuse. currently sober. 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 Height 164.4 cm (5' 4.72) 02/24/2015 2:00 PM CS T Body Mass Index 21.76 02/24/2015 2:00 PM SALES AND MARKETING ASSOCIATE Plan of Treatment Health Maintenance Due Date Last Done Comments Cervical Cancer Screening Due 1975 Colon Cancer Screening Plan Due 1975 Hep C Screening (Preventive Services) 1975 Mammogram 1975 HIV Screening (Preventive Services) 1991 Adult Preventive Visit 11/25/1993 HepB Vaccine (1) 11/25/1994 Pneumococcal Vaccine (1 of 2 - PCV) 11/25/1994 Cholesterol 11/25/2020 02/12/2015, 01/24, 01/11/2014 DTaP/Tdap/Td Vaccine (2 - Tdap) 09/05/2023 09/04/2013 COVID-19 Vaccine (3 - season) 2023 09/21/2020, 09/01/2020 Influenza Vaccine (Season Ended) 2024 02/28/2017, 12/26/2014, 12/09/2014, Additional history exists Zoster/Shingles Vaccine (1 of 2) 11/25/2025 HepA Vaccine Aged Out No longer eligi ble based on patient's age to complete this topic Hib Vaccine Aged Out No longer eligi ble based on patient's age to complete this topic IPV (Polio) Vaccine Aged Out No longe r eligible based on patient's age to complete this topic MCV4 Vaccine Aged Out No longer eligi ble based on patient's age to complete this topic Meningococcal B Vaccine Aged Out No l onger eligible based on patient's age to complete this topic Procedures Procedure Name Priority Date/Time Associated Diagnosis Comments LIPID PANEL & DIRECT LDL (IF NEEDED) Routine 02/12/2015 2:19 PM CDT Bulimia nervosa from Last 3 Months or Most Recently Relevant to Health Maintenance Results * (ABNORMAL) Lipid Panel and Direct LDL(If Needed) (02/12/2015 2:19 PM CDT) Cholesterol 217(H) 0 - 200 mg/dL HP CONVERSION Triglycerides 79 0 - 149 mg/dL HP CONVERSION HDL Cholesterol 104 >39 mg/dL HP CONVERSION Cholesterol/HDL Ratio Screen 2.1 HP CONVERSION LDL Calculated 97 19 - 130 mg/dL HP CONVERSION 02/12/2015 2:19 PM CDT 02/12/2015 4:51 PM CDT Narrative HP CONVERSION - 02/12/2015 5:58 PM CDT Performed at [facility], [address] [place] [address] CLIA number [id number] Transcriptions 01/30/2015 11:59 PM CDTNotes Recorded by Kimberly Dorado MA on 02/13/2015 at 8:33 AMLab letter has been sent------Notes Recorded by Noreen Kenny PA-C on 02/12/2015 at 6:35 PMLab results reviewed. Please send lab letter. Thank you. us Noreen Kenny PA-C LAB_[email or web address] Final Result HP CONVERSION from Last 3 Months or Most Recently Relevant to Health Maintenance Insurance [facility] Advance Directives * Full Code (Latest Code Status on File) Date Activated Date Inactivated Comments 02/11/2014 4:04 PM 02/21/2014 10:56 PM Care Teams Regulatory Submissions Associate Relationship Specialty Start Date End Date Kendra Hussein MD PCP - General 01/11/14
--- NOTE | 2024-10-14 19:10 | CRLHL7_ITS ---
For Patients: As a result of the Century Cures Act, medical imaging exams and procedure reports are released immediately into your electronic medical record. You may view this report before your referring provider. If you have questions, please contact your health care provider. INDICATION: Midsternal pain after injury 3 weeks ago. TECHNIQUE: Chest 2 views. COMPARISON: 02/27/2017. FINDINGS: Cardiovascular and mediastinum: Heart size and vasculature are normal in caliber and appearance. Lungs and pleural spaces: No focal consolidation, pleural effusion, or pneumothorax. Bones and soft tissues: Unremarkable for age. IMPRESSION: No evidence of an acute pulmonary process. Dictated by Gabe Dasilva MD @ 10/14/2024 7:34:09 PM (Electronically Signed)
--- NOTE | 2024-10-14 19:12 | ED.GENADULT ---
HPI - General Adult General Date Seen: 10/14/24 Chief complaint: Unspecified Complaint, Adult Stated complaint: potential sternum fracture Time Seen by Provider: 10/14/24 18:51 Source: patient Mode of arrival: ambulatory Limitations: no limitations History of Present Illness HPI narrative: Patient is a 48-year-old female presenting for midsternal chest pain. She states 3 weeks ago she go move bed and states she was still slightly groggy. She then tripped over something on the floor causing her to fall into the wall. She states she hit the corner of the wall onto her chest. She thought pain would improve over the next few weeks but has been persistent. Has been taking Motrin for pain without any improvement. She states she is able to breathe normally able to she takes a deep breath it is painful. Denies any heart or lung issues. No history of blood clots. No history of lower extremity edema. Denies symptoms like this before. No other concerns noted at this time. Denies any other injuries. States this chest pain only occured after the fall. Related Data Home Medications ?Medication ?Instructions ?Recorded ?Confirmed fluoxetine 20 mg capsule 20 mg PO DAILY 10/14/24 10/14/24 trazodone 50 mg tablet 50 - 150 mg PO QPM PRN 10/14/24 10/14/24 Allergies Allergy/AdvReac Type Severity Reaction Status Date / Time No Known Drug Allergies Allergy Verified 10/14/24 18:58 Review of Systems Status of ROS: Reports: 10 or more systems reviewed and unremarkable except as noted in History and below [facility] Medical History Depression ?F32.A - Depression, unspecified (ICD-10) Exam Narrative: Exam Narrative: Const: Well-nourished, Well-developed, in mild distress Eyes: PERRL, no conjunctival injection, and symmetrical lids HENT: Atraumatic external nose and ears. Moist mucous membranes. Neck: Symmetric, trachea midline, No thyromegaly. CVS: RRR, No murmurs or gallops. Peripheral pulses 2+ and equal in all extremities RESP: Unlabored respiratory effort. Clear to auscultation bilaterally. GI: Nontender/Nondistended, No rebound or guarding. MSK:Extremities w/o deformity, Normal Active ROM, tenderness to palpation midsternal chest this reproducible exactly with palpation Skin: Warm, Dry. No rashes or lesions. Neuro: Normal Muscle tone, No focal neurological deficits. Psych: Awake, Alert, & Oriented x3. Appropriate mood and affect. Const: Vital Signs, click to edit/add: Vital Signs - 24 hr 10/14/24 18:52 10/14/24 19:15 Temperature 98.5 F Pulse Rate [Pulse Oximeter] 77 Respiratory Rate 18 Respiratory Rate [ Upper Chest] 18 Blood Pressure [Ri ght Upper Arm] 135/88 Pulse Oximetry 94 Oxygen Delivery Me thod Room Air Course Vital Signs Vital signs: Initial Vital Signs Temperature 98.5 F 10/14/24 18:52 Temperature Source Temporal Artery Scan 10/14/24 18:52 Pulse Rate 77 10/14/24 18:52 Respiratory Rate 18 10/14/24 18:52 Blood Pressure 135/88 10/14/24 18:52 Blood Pressure Mean 103 10/14/24 18:52 Blood Pressure Position Sitting 10/14/24 18:52 Pulse Oximetry 94 10/14/24 18:52 Oxygen Delivery Method Room Air 10/14/24 18:52 Vital Signs Temperature 98.5 F 10/14/24 18:52 Pulse Rate 77 10/14/24 18:52 Respiratory Rate 18 10/14/24 18:52 Blood Pressure 135/88 10/14/24 18:52 Pulse Oximetry 94 10/14/24 18:52 Oxygen Delivery Method Room Air 10/14/24 18:52 Temperature 98.5 F 10/14/24 18:52 Pulse Rate 77 10/14/24 18:52 Respiratory Rate 18 10/14/24 19:15 Blood Pressure 135/88 10/14/24 18:52 Pulse Oximetry 94 10/14/24 18:52 Oxygen Delivery Method Room Air 10/14/24 18:52 Medical Decision Making MDM Narrative Medical decision making narrative: Patient is a 48-year-old female presenting to the emergency department for chest pain. The differential diagnosis of chest pain is broad and includes common etiologies such as musculoskeletal strain, GERD, pneumonia, etc. More serious etiologies considered include PE, coronary artery disease, pneumothorax, aortic dissection, aortic aneurysm. A concern for a PE, coronary artery disease, aortic dissection, aortic aneurysm is very low. The chest pain started right after she hit her chest against the wall. Will do some basic labs and an EKG to look for signs of cardiac contusion. Will also do a troponin. Chest x-ray ordered to look for any abnormalities. Imaging reviewed by myself and the radiologist shows no acute concerning abnormalities. EKG shows no concerning findings troponin and CBC shows no concerning findings. Patient is not want to wait for BMP and wants to leave. Concern is most likely a bone contusion she is safe for discharge. She is agreeable to this plan. Lab Data Labs: Lab Results 10/14/24 10/14/24 Range/Units 19:15 19:30 WBC 4.60 (4.50-11.00) K/uL RBC 4.81 (4.00-5.20) m/uL Hgb 14.6 (12.0-16.0) gm/dL Hct 44.0 (33.0-51.0) % MCV 92 (80-100) fL MCH 30 (26-34) pg MCHC 33 (32-36) gm/dL RDW Coeff of Michelle 13.7 (11.5-15.5) % Plt Count 353 (140-440) K/uL Neut % (Auto) 47.1 (42.0-72.0) % Lymph % (Auto) 40.0 (20-44) % Valley % (Auto) 11.1 H (0.0-11.0) % Eos % (Auto) 0.7 (0.0-7.0) % Baso % (Auto) 1.1 (0.0-3.0) % Neut # (Auto) 2.17 (1.7-7.0) K/uL Lymph # (Auto) 1.84 (0.90-2.90) K/uL Valley # (Auto) 0.50 (0.00-0.90) K/UL Eos # (Auto) 0.03 (0.00-0.50) K/uL Baso # (Auto) 0.05 (0.00-0.30) K/uL Abs Immat Gran (auto) 0.00 (0.00-0.30) K/uL Imm/Tot Granulo (auto) 0.0 % POC Troponin I 0.00 L (0.01-0.04) ng/ml Imaging Data Chest x-ray: Attestation: I have reviewed the pertinent imaging results. Radiologist's impression: No evidence of an acute pulmonary process. Dictated by Gabe Dasilva MD @ 10/14/2024 7:34:09 PM ECG Data Attestation: I personally reviewed and interpreted this ECG as follows: Prior ECG tracings: not available for review Interpretation: Normal sinus rhythm, normal intervals, normal axis, no ST or T-wave abnormalities Discharge Plan Discharge Clinical Impression: Anterior chest wall pain Patient Disposition: Home, Self-Care Condition: Stable Instructions: Bone Bruise (ED) Additional Instructions: This is likely a bone bruise of your sternum. Continue take care pain medication at home. Symptoms should resolve within next few weeks to month. Return to emergency department for new or worsening symptoms Prescriptions: No Action trazodone 50 mg tablet 50 - 150 mg PO QPM PRN fluoxetine 20 mg capsule 20 mg PO DAILY Follow Up/Referrals: Provider,Not a Local [Primary Care Provider, Family Practice] Stand Alone Forms: MyHealth Info Instructions
[2024-10-14 19:15] VITALS: RESP 18; O2SAT 99
[2024-10-14 19:48] LABS: Basophils Absolute Auto 0.05 K/uL (0.00-0.30); Basophils Percent Auto 1.1 % (0.0-3.0); Eosinophils Absolute Auto 0.03 K/uL (0.00-0.50); Eosinophils Percent Auto 0.7 % (0.0-7.0); Hemoglobin* 14.6 gm/dL (12.0-16.0); Lymphocytes Absolute Auto 1.84 K/uL (0.90-2.90); Mean Corpuscular HGB Conc 33 gm/dL (32-36); Mean Corpuscular Hemoglobin 30 pg (26-34); Mean Corpuscular Volume 92 fL (80-100); Monocytes Percent Auto 11.1 % (0.0-11.0); Neutrophils Absolute Auto 2.17 K/uL (1.7-7.0); Neutrophils Percent Auto 47.1 % (42.0-72.0); Platelet Count* 353 K/uL (140-440); RDW Coefficient of Variation % 13.7 % (11.5-15.5); Red Blood Count 4.81 m/uL (4.00-5.20)
[2024-10-14 20:04] LABS: Slide Review Reflex No
[2024-10-14 20:17] VITALS: BP 125/74; PULSE 71; RESP 18; TEMP 36.9; O2SAT 94
[2024-10-14 20:21] VITALS: BP 125/74; PULSE 71; RESP 18; TEMP 36.9
[2024-10-14 20:24] LABS: Chloride* 108 mmol/L (96-114); Sodium* 143 mmol/L (135-149)
[2024-10-14 20:25] LABS: Potassium* 3.9 mmol/L (3.6-5.1)
[2024-10-14 20:27] LABS: Blood Urea Nitrogen* 9 mg/dL (5-24); Creatinine* 0.8 mg/dL (0.5-1.5); Estimated Glomerular Filt Rate 91 ml/min
[2024-10-14 20:28] LABS: Anion Gap 10 mEq/L (7-15); Calcium* 8.5 mg/dL (8.4-10.6); Carbon Dioxide* 25 mmol/L (20-32); Glucose* 96 mg/dL (60-115)
== END 2024-10-14 20:21 | disposition home or self-care (01) ==
PROVIDERS: Emergency Provider Student in an Organized Health Care Education/Training Program
DX: R07.89 Other chest pain (principal)
CPT/HCPCS: 36415; 71046; 80048; 84484; 85025; 93005; 99284; 99285

== ENCOUNTER 2024-10-20 12:32 | Emergency (ER) | payer OTHER, SELFPAY ==
--- OUTSIDE RECORDS SUMMARY | 2024-10-20 12:35 | XMS_ITS | Encounter Summary ---
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) [address] [phone] Luanne Awad DO [address] [place] [address] [address] [place], [place] [id number] Social History Tobacco Use Types Packs/Day Years Used Date Smoking Tobacco: Never Smokeless Tobacco: Never Alcohol Use Standard Drinks/Week Comments No 0 (1 standard drink = 0.6 oz pur e alcohol) not with Comments No Sex and Gender Information Value Date Recorded Sex Assigned at Not on file Legal Sex Female 3:54 AM 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 [address] PCP - General 12/20/16 10/28/22 Diana Mcfarland PA-C [address] [place] [address] [place] [address] PCP - Assigned PCP 12/07/15 06/27/18 No Ref-Primary, Physician PCP - General 10/29/22 Diana Mcfarland PA-C [address] [place] [address] [place] [address] Assigned PCP 12/07/15 12/02/18 documented as of this encounter
--- OUTSIDE RECORDS SUMMARY | 2024-10-20 12:35 | XMS_ITS | Encounter Summary ---
Author Organization [place] Address [facility] [place] [address] Care Team Providers Care Cell Manager Name Role Phone Unassigned MD ELIZABETH, Clinic Primary Care Provider Unavailable No Ref-Primary, Physician Primary Care Provider No Ref-Primary, Physician Primary Care Provider Clinic - [facility] Primary Care Provider ChromDiana shelton A PA-C Unavailable [phone] Chromy Diana A PA-C Unavailable [phone] No Ref-Primary, Physician Primary Care Provider Encounter Details Date Type Department Care Team (Late st Contact Info) Description 05/31/2009 Clinic Report (Mechanical Intern) [address] [phone] Kathy Betts MD Social History Tobacco Use Types Packs/Day Years Used Date Smoking Tobacco: Never Assessed Comments Unknown Sex and Gender Information Value Date Recorded Sex Assigned at Not on file Legal Sex Female 3:54 AM REFUSE DRIVER Gender Identity Not on file Sexual Orientation [...] : may need ongoing contiuous SSRI Rx SE DRIVER documented in this encounter Plan of Treatment Not on file documented as of this encounter Visit Diagnoses Not on filedocumented in this encounter Additional Health Concerns Infection Onset Date Last Indicated Resolved Time Rule Out C-difficile 10/29/2022 10/29/2022 023 8:25 PM CDT documented as of this encounter Care Teams Cell Manager Relationship Specialty Start Date End Date Unassigned, Clinic MD ELIZABETH PCP - General 08/14/10 1 No Ref-Primary, Physician PCP - General 01/08/11 10/12/12 No Ref-Primary, Physician PCP - General 10/13/12 12/19/16 Clinic - [facility] [address] [place], [place] [address] [address] PCP - General 12/20/16 10/28/22 Diana Mcfarland PA-C [address] [place] [address] [place] [address] PCP - Assigned PCP 12/07/15 06/27/18 No Ref-Primary, Physician PCP - General 10/29/22 Diana Mcfarland PA-C [address] [place] [address] [place] [address] Assigned PCP 12/07/15 12/02/18 documented as of this encounter
--- OUTSIDE RECORDS SUMMARY | 2024-10-20 12:35 | XMS_ITS | Clinical Summary ---
Author Organization [facility] Address [address] [place] [address] Care Team Providers Care Residence Life Director Name Role Phone Jero Soniclaudia Alvarez NP [...] Type Department Care Team Description 10/08/2024 Refill [facility] at [address] [place] [phone] Brittaney Zelaya, GARMENT PARTS CUTTER HAND Refill Request (Fluoxetine 40mg/) 09/21/2024 2:15 PM CDT Office Visit [facility] [address] [place] [phone] Lopez Denny MD Mental Health Issue 09/21/2024 [...] on file Legal Sex Female 5:24 AM AUTOMATIC CHIEF Gender Identity Not on file Sexual Orientation [...] Comments Blood Pressure 114/82 06/29/2023 2:05 PM AUTOMATIC CHIEF Pulse 64 06/29/2023 2:05 PM AUTOMATIC CHIEF Temperature 36.6 C (97.9 F) 04/14/2023 3:22 PM AUTOMATIC CHIEF Respiratory Rate 16 06/29/2023 2:05 PM AUTOMATIC CHIEF Oxygen Saturation 95% 04/28/2023 8:45 AM AUTOMATIC CHIEF Inhaled Oxygen Concentration - - Weight 56.4 kg (124 lb 6.4 oz) 06/29/2023 2:05 P M AUTOMATIC CHIEF Height 165.1 cm (5' 5) 04/28/2023 8:45 AM AUTOMATIC CHIEF Body Mass Index 20.7 04/28/2023 8:45 AM AUTOMATIC CHIEF Plan of Treatment Health Maintenance Due Date [...] REFLEX MEASURED LDL Routine 04/28/2023 9:48 AM AUTOMATIC CHIEF Screening for lipid disorders HPV HIGH RISK Routine 07/24/2021 1:00 PM CDT from Last 3 Months or Most Recently Relevant to Health Maintenance Results * (ABNORMAL) LIPID PANEL W REFLEX MEASURED LDL [BYQ0109] (04/28/2023 9:48 AM AUTOMATIC CHIEF) CHOLESTEROL,TOTAL 223(H) 100 - 199 mg/dL 04/28/2023 12:47 PM AUTOMATIC CHIEF [facility] Comment: Cholesterol, Total Reference Ranges Desirable <200 mg/dL Borderline 200-239 mg/dL High >=240 mg/dL TRIGLYCERIDES 164(H) <150 mg/dL 04/28/2023 12:47 PM AUTOMATIC CHIEF [facility] HDL CHOLESTEROL 87 >40 mg/dL 12:47 PM AUTOMATIC CHIEF [facility] NON-HDL CHOLESTEROL 136 <145 mg/dl 04/28/2023 12:47 PM AUTOMATIC CHIEF [facility] CHOL/HDL RATIO 2.56 <4.50 04/28/2023 12:47 PM AUTOMATIC CHIEF [facility] LDL CHOLESTEROL 103 <=130 mg/dL 04/28/2023 12:47 PM AUTOMATIC CHIEF [facility] VLDL CHOLESTEROL 33(H) <=30 mg/dL 04/28/2023 12:47 PM AUTOMATIC CHIEF [facility] PROVIDER ORDERED STATUS RANDOM 04/28/2023 12:47 PM AUTOMATIC CHIEF [facility] Blood BLOOD SPECIMEN / Unknown Venipuncture / Unknown 04/28/2023 9:48 AM AUTOMATIC CHIEF 04/28/2023 9:48 AM AUTOMATIC CHIEF us Haleigh Soni NP CHEMISTRY Final R esult [facility] [address] [place], [place] [address] * HPV HIGH RISK (07/24/2021 1:00 PM CDT) TYPE 16 Negative Negative 07/28/2021 5:30 PM CDT [facility] TYPE 18 Negative Negative 07/28/2021 5:30 PM CDT [facility] OTHER HIGH RISK TYPES Negative Negative 07/28/2021 5:30 PM CDT [facility] Other (Cervical/Vagina l) 07/24/2021 1:00 PM CDT 07/27/2021 9:05 AM CDT Narrative [facility] - 07/28/2021 5:30 PM CDT HPV types 16, 18, 31, 33, 35, 39, 45, 51, 52, 56, 58, 59, 66 and 68 DNA were undetectable or below the pre-set threshold. Methodology: Carol Aguila 4800 HPV Test us Christiana Mendez NP MICROBIOLOGY Final Resu lt [facility] [address] [place] [address], from Last 3 Months or Most Recently Relevant to Health Maintenance Insurance [facility] Advance Directives * Full Code (Latest Code Status on File) Date Activated Date Inactivated Comments 12/05/2013 3:11 AM 12/06/2013 8:13 PM Care Teams Residence Life Director Relationship Specialty Start Date End Date Haleigh Soni NP [address] [place] [address] [place] [address] PCP - General Nurse Practitioner - Family 08/17/23
--- OUTSIDE RECORDS SUMMARY | 2024-10-20 12:35 | XMS_ITS | Encounter Summary ---
Author Organization [place] Address [facility] [place] [address] Care Team Providers Care Screen Door Maker Name Role Phone Unassigned MD ELIZABETH, Clinic Primary Care Provider Unavailable No Ref-Primary, Physician Primary Care Provider No Ref-Primary, Physician Primary Care Provider Clinic - [facility] Primary Care Provider Chromy Diana A PA-C Unavailable [phone] Chromy, Diana A PA-C Unavailable [phone] No Ref-Primary, Physician Primary Care Provider Encounter Details Date Type Department Care Team (Late st Contact Info) Description 11/11/2009 Clinic Report (Heel Molder) [address] [phone] No Funez MD NO INFO AVAILABLE 07/07/2022 Social History Tobacco Use Types Packs/Day Years Used Date Smoking Tobacco: Never Assessed Comments Unknown Sex and Gender Information Value Date Recorded Sex Assigned at Not on file Legal Sex Female 3:54 AM CREATIVE COORDINATOR Gender Identity Not on file Sexual [...] documented as of this encounter Care Teams Screen Door Maker Relationship Specialty Start Date End Date Unassigned, Clinic MD ELIZABETH PCP - General 08/14/10 1 No Ref-Primary, Physician PCP - General 01/08/11 10/12/12 No Ref-Primary, Physician PCP - General 10/13/12 12/19/16 Clinic - [facility] [address] [place], [place] [phone] PCP - General 12/20/16 10/28/22 Diana Mcfarland PA-C [address] [place] [address] [place] [address] PCP - Assigned PCP 12/07/15 06/27/18 No Ref-Primary, Physician PCP - General 10/29/22 Diana Mcfarland PA-C [address] [place] [address] [place] [address] Assigned PCP 12/07/15 12/02/18 documented as of this encounter
--- OUTSIDE RECORDS SUMMARY | 2024-10-20 12:35 | XMS_ITS | Clinical Summary ---
Author Organization [facility] Address [address] [place] [address] Care Team Providers Care Health Outreach Worker Name Role Phone Kendra Hussein MD Primary Care Pr ovider Source Comments You are receiving this document as you are listed as the primary care provider,follow-up provider, or the patient has been referred to you for consultation.This is in compliance with the Medicare and[employer] EHR Incentive Program,which states Providers who transition their patient to another setting of careor provider of care or refers their patient to another provider of care shouldprovide summary care record for each transition of care or referral. [facility] Allerg[facility] No known active allergies Medications * [...] Dates Next Due Influenza IIV4 (Quadrivalent) 0.5mL (97745) 01/24 Social History Tobacco Use Types Packs/Day [...] (129 lb 10.1 oz) 02/24/2015 2:00 PM CHARGE ATTENDANT Height 164.4 cm (5' 4.72) 02/24/2015 2:00 PM CS T Body Mass Index 21.76 02/24/2015 2:00 PM CHARGE ATTENDANT Plan of Treatment Health Maintenance Due Date [...] - 02/12/2015 5:58 PM CDT Performed at [place] [facility], [address] [place] [address] CLIA number [id number] Transcriptions 01/30/2015 11:59 PM CDTNotes Recorded by Kimberly Dorado MA on 02/13/2015 at 8:33 AMLab letter has been sent------Notes Recorded by Noreen Kenny PA-C on 02/12/2015 at 6:35 PMLab results reviewed. Please send lab letter. Thank you. us Noreen Kenny PA-C LAB_1 Final Result HP CONVERSION from Last 3 Months or Most Recently Relevant to Health Maintenance Insurance [facility] Advance Directives * Full Code (Latest Code Status on File) Date Activated Date Inactivated Comments 02/11/2014 4:04 PM 02/21/2014 10:56 PM Care Teams Health Outreach Worker Relationship Specialty Start Date End Date Kendra Hussein MD PCP - General 01/11/14
--- OUTSIDE RECORDS SUMMARY | 2024-10-20 12:35 | XMS_ITS | Clinical Summary ---
Author Organization [place] Address [facility] [place] [address] Care Team Providers Care Video Manager Name Role Phone No Ref-Primary, Physician Primary [...] 11/05/2010 Overview (05/23/2013): Was seen 08/05 by [facility] and started on Topimax [...] sporadic care, Wt loss. 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 [address] 1[address] floor, [address] [place] [address], [facility] [phone] * HIV 1 and 2 Antibody (08/14/2010 4:09 PM CDT) HIV 1&2 Antibody Negative NEG [facility] Blood specimen (specimen) 08/14/2010 4:09 PM CDT 08/14/2010 4:10 PM CDT us Queta Bartlett APRN CNM LAB - BLOOD ORDERABLES Final Result [facility] [address] [place] [address] * PAP imaged thin layer screen (08/14/2010 12:00 AM CDT) PAP CALEB Aguilar Report Patient Name: BRENDA QUIROGA MR#: [id number] Specimen #: [id number] Collected: 08/14/2010 Received: 08/17/2010 Reported: 08/20/2010 15:55 [...] Hubert Ramirez M.D. Processed and screened at [facility] CLINICAL HISTORY: LMP: 04/13/2010 , Papanicolaou Test Limitations: Cervical cytology is a screening test with limited sensitivity; regular screening is critical for cancer prevention; Pap tests are primarily effective for the diagnosis/preventi on of squamous cell carcinoma, not adenocarcinomas or other cancers. TESTING LAB LOCATION: [facility], [address] [place] [id number] COLLECTION SITE: Client: [facility] Location: [facility] (B) [facility] Cytologic material (specimen) 08/14/2010 08/17/2010 12:47 PM CDT us Queta Bartlett ELEMENTARY SECRETARY CNM LAB - OPTIME CLINICAL SPECIMEN Final Result [facility]ATH from Last 3 Months or Most Recently Relevant to Health Maintenance Insurance [facility] Care Teams Video Manager Relationship Specialty Start Date End Date No Ref-Primary, Physician PCP - General 10/29/22
--- OUTSIDE RECORDS SUMMARY | 2024-10-20 12:35 | XMS_ITS | Encounter Summary ---
Author Organization [place] Address [facility] [place] [address] Care Team Providers Care Emt/Dispatcher Name Role Phone Unassigned MD ELIZABETH, Clinic Primary Care Provider Unavailable No Ref-Primary, Physician Primary Care Provider No Ref-Primary, Physician Primary Care Provider Clinic - [facility] Primary Care Provider Chromy Diana A PA-C Unavailable [phone] Chromy, Diana A PA-C Unavailable [phone] No Ref-Primary, Physician Primary Care Provider Encounter Details Date Type Department Care Team (Late st Contact Info) Description 11/10/2009 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) [address] [id number] No Funez MD NO INFO AVAILABLE 07/07/2022 Social History Tobacco Use Types Packs/Day Years Used Date Smoking Tobacco: Never Assessed Comments Unknown Sex and Gender Information Value Date Recorded Sex Assigned at Not on file 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 Gender Identity Not on file Sexual Orientation [...] documented as of this encounter Care Teams Emt/Dispatcher Relationship Specialty Start Date End Date Unassigned, Clinic MD ELIZABETH PCP - General 08/14/10 1 No Ref-Primary, Physician PCP - General 01/08/11 10/12/12 No Ref-Primary, Physician PCP - General 10/13/12 12/19/16 Clinic - [facility]ully Rodriguez [facility] [address] [place] [phone] PCP - General 12/20/16 10/28/22 Diana Mcfarland PA-C [address] [place] [address] [place] [address] PCP - Assigned PCP 12/07/15 06/27/18 No Ref-Primary, Physician PCP - General 10/29/22 Diana Mcfarland PA-C [address] [place] [address] [place] [id number] Assigned PCP 12/07/15 12/02/18 documented as of this encounter
[2024-10-20 12:44] VITALS: BP 135/103; PULSE 110; RESP 16; TEMP 36.9; O2SAT 96; BMI 20.6
--- NOTE | 2024-10-20 12:49 | ED.GENADULT ---
HPI - General Adult General Chief complaint: Rib Pain Stated complaint: sternum pain/bruise Time Seen by Provider: 10/20/24 12:47 History of Present Illness HPI narrative: Patient is a 48-year-old woman who unfortunately fell injuring her sternum approximately 2 weeks ago. Patient was seen in the emergency room 5 days ago and x-ray was unremarkable. She has pain over her sternum with no radiculopathy. No diaphoresis nausea vomiting fever chills. Patient states that she has otherwise been feeling fine in the pain is actually improving with anti-inflammatories. Patient has been unable to go to work secondary to her pain and is coming in today to request a note so that she can not be panel eyes for missing. Again she has no other related symptoms no cardiovascular respiratory symptoms patient is otherwise in her usual state of health. She takes no blood thinners or anti-platelet agents. Related Data Home Medications ?Medication ?Instructions ?Recorded ?Confirmed fluoxetine 20 mg capsule 20 mg PO DAILY 10/14/24 10/14/24 trazodone 50 mg tablet 50 - 150 mg PO QPM PRN 10/14/24 10/14/24 Allergies Allergy/AdvReac Type Severity Reaction Status Date / Time No Known Drug Allergies Allergy Verified 10/14/24 18:58 Review of Systems Status of ROS: Reports: 10 or more systems reviewed and unremarkable except as noted in History and below [facility] Medical History Depression ?F32.A - Depression, unspecified (ICD-10) Exam Narrative: Exam Narrative: EXAM GENERAL: Patient appears comfortable and well. EYES: No scleral icterus. LYMPH: No supraclavicular or cervical lymphadenopathy. SKIN: Visible skin seen during exam normal or with benign process only. EXT: No dependent lower extremity pedal edema. HEART: Regular rate and rhythm with no murmurs, rubs, or gallops. LUNGS: Clear to auscultation bilaterally with no crackles or wheezes. ABD: Soft, non tender, non distended. PSYCH: Good eye contact, speech is not pressured. Const: Vital Signs, click to edit/add: Vital Signs - 24 hr 10/20/24 12:44 Temperature 98.5 F Pulse Rate [Right Radial] 110 H Respiratory Rate 16 Blood Pressure [Ri ght Upper Arm] 135/103 H Pulse Oximetry 96 Oxygen Delivery Me thod Room Air Course Vital Signs Vital signs: Initial Vital Signs Temperature 98.5 F 10/20/24 12:44 Temperature Source Temporal Artery Scan 10/20/24 12:44 Pulse Rate 110 H 10/20/24 12:44 Pulse Rhythm Regular 10/20/24 12:44 Respiratory Rate 16 10/20/24 12:44 Blood Pressure 135/103 H 10/20/24 12:44 Blood Pressure Mean 113 H 10/20/24 12:44 Pulse Oximetry 96 10/20/24 12:44 Oxygen Delivery Method Room Air 10/20/24 12:44 Vital Signs Temperature 98.5 F 10/20/24 12:44 Pulse Rate 110 H 10/20/24 12:44 Respiratory Rate 16 10/20/24 12:44 Blood Pressure 135/103 H 10/20/24 12:44 Pulse Oximetry 96 10/20/24 12:44 Oxygen Delivery Method Room Air 10/20/24 12:44 Temperature 98.5 F 10/20/24 12:44 Pulse Rate 110 H 10/20/24 12:44 Respiratory Rate 16 10/20/24 12:44 Blood Pressure 135/103 H 10/20/24 12:44 Pulse Oximetry 96 10/20/24 12:44 Oxygen Delivery Method Room Air 10/20/24 12:44 Medical Decision Making [facility] Narrative Medical decision making narrative: Patient presents proximally 2 weeks after having a chest contusion and approximately 5 days after being assessed with a chest x-ray in the emergency room stating that her symptoms are improving with anti-inflammatories but she has been unable to work. She is requesting a work note which I did provide extending from October 14 to October 22. Otherwise will continue symptomatic treatment. Discharge Plan Discharge Clinical Impression: Contusion Patient Disposition: Home, Self-Care Condition: Stable Instructions: Contusion in Adults (ED) Additional Instructions: Continue symptomatic treatments Follow-up as needed. Activity Level: No Restrictions Discharge Diet: Regular Prescriptions: No Action trazodone 50 mg tablet 50 - 150 mg PO QPM PRN fluoxetine 20 mg capsule 20 mg PO DAILY Follow Up/Referrals: Provider,Not a Local [Primary Care Provider, Family Practice] Stand Alone Forms: [email or web address] Info Instructions
== END 2024-10-20 13:48 | disposition home or self-care (01) ==
LOC: ED 13:10
PROVIDERS: Emergency Provider Internal Medicine
DX: S20.213A Contusion of bilateral front wall of thorax, initial encounter (principal)
CPT/HCPCS: 99283